=== PATIENT | female | born 1950 | race Caucasian/White ===

== ENCOUNTER 2016-08-07 16:13 | Outpatient (CLI) | payer OTHER ==
[2016-08-07] MEDS ORDERED: PROLIA SUBCUT STA (16:41)
[2016-08-07 17:07] VITALS: BP 152/84; TEMP 98.1
== END 2016-08-07 16:55 | disposition home or self-care (01) ==
LOC: OPMED 16:13
PROVIDERS: ATTEND Family Medicine
DX: M81.0 Age-related osteoporosis without current pathological fracture (principal)
CPT/HCPCS: 96372

== ENCOUNTER 2017-02-16 15:32 | Outpatient (CLI) ==
[2017-02-16] MEDS ORDERED: PROLIA SUBCUT STA (15:43)
[2017-02-16 15:51] VITALS: BP 128/70; TEMP 98.4
== END 2017-02-16 15:33 | disposition home or self-care (01) ==
LOC: OPMED 15:32
PROVIDERS: ATTEND Family Medicine
DX: M81.0 Age-related osteoporosis without current pathological fracture (principal)